=== PATIENT | male | born 1995 | race Caucasian/White ===

== ENCOUNTER 2017-05-15 14:47 | Emergency (ER) | payer OTHER ==
[2017-05-15 15:37] VITALS: BP 124/73
--- NOTE | 2017-05-15 16:06 | UC ---
Throat Pain/Nasal Navi HPI - HPI Summary HPI Summary: 21m presents with sore throat for 4 days. has been seen at ED twice first time told had strept without culture prescribed amoxicillin. developed rash on tongue and went back to ED and was told that has mono although mono spot neg. states that has had white coating to tongue for past 4 days after took amoxicillin. denies any chest pain or SOB. has occasionally dry cough. had fevers couple days ago and fatigue. denies any abdominal pain, n/v. states that bite his lip and now has lesions on lips that scrap off. no history of HSV. no burning pain to lip. He does not use chew tobacco. - History of Current Complaint Chief Complaint: UCRespiratory Stated Complaint: SORE THROAT,COUGH Time Seen by Provider: 05/15/17 15:04 - Allergies/Home Medications Allergies/Adverse Reactions: Allergies Allergy/AdvReac Type Severity Reaction Status Date / Time Amoxicillin Allergy Hives Verified 05/15/17 15:21 Penicillins Allergy Hives Verified 05/15/17 15:21 Home Medications: Home Medications Amphetamine-Dextroamphetamine [Adderall 15 mg] 1 tab DAILY 05/15/17 [History Confirmed 05/15/17] PMH/Surg Hx/FS Hx/Imm Hx Endocrine History: Other Other Endocrine History: no DM Cardiovascular History: Other Other Cardiovascular History: no HTN - Surgical History Surgical History: None - Family History Known Family History: Negative: Diabetes - Social History Alcohol Use: None Substance Use Type: None Smoking Status (MU): Never Smoked Tobacco - Immunization History Most Recent Influenza Vaccination: NOT YET 2017 Review of Systems Constitutional: Negative ENT: Sore Throat Respiratory: Negative Cardiovascular: Negative All Other Systems Reviewed And Are Negative: Yes Physical Exam Triage Information Reviewed: Yes Appearance: Well-Appearing Vital Signs: Initial Vital Signs Temp 98.8 F 05/15/17 15:22 Pulse 85 05/15/17 15:22 Resp 16 05/15/17 15:22 BP 124/73 05/15/17 15:22 Pulse Ox 99 05/15/17 15:22 Vital Signs Reviewed: Yes Eyes: Positive: Conjunctiva Clear ENT: Positive: Pharyngeal erythema, TMs normal, Tonsillar swelling, Other: - uvula midline, soft palate symmetric, white coating to tongue that does scrap off, flat lesions on wet shivani that scrap off nonvescular. Negative: Tonsillar exudate, Trismus, Muffled/hoarse voice Neck: Positive: Supple, Nontender, Other: - cervical lymphadenopathy Respiratory: Positive: Lungs clear, Normal breath sounds Cardiovascular: Positive: RRR Abdomen Description: Positive: Nontender, Soft Bowel Sounds: Positive: Present Musculoskeletal Exam: Normal Neurological Exam: Normal Psychological Exam: Normal Skin Exam: Normal Throat Pain/Nasal Course/Dx - Course Course Of Treatment: 21m presents with sore throat for 4 days. has been seen at ED twice first time told had strept without culture prescribed amoxicillin. developed rash on tongue and went back to ED and was told that has mono although mono spot neg. states that has had white coating to tongue for past 4 days after took amoxicillin. denies any chest pain or SOB. has occasionally dry cough. had fevers couple days ago and fatigue. denies any abdominal pain, n/v. states that bite his lip and now has lesions on lips that scrap off. no history of HSV. no burning pain to lip. on exam has maculopapular rash to tunk looks like mono rash. strept neg. pharynx erythema, tonsils+1, uvula midline, soft palate symmetric, tongue white coating scraps off will treat as candidasis but could be leukoplakia so needs to follow up with dentist. lips nonvescicular flat lesion that scrap off. will treat with magic mouth wash with nystatin for candidasis. will give steriod for rash and swelling tonsils. told to take bendaryl. patient understands and agrees with plan. - Differential Dx/Diagnosis Differential Diagnosis/HQI/PQRI: Pharyngitis, Tonsillitis, Other - candidasis Provider Diagnoses: pharnygitis, oral candidasis Discharge - Discharge Plan Condition: Good Disposition: HOME Prescriptions: Dexamethasone TAB* [Decadron TAB*] 4 mg PO DAILY #5 tab Magic M W2 Mario/Maal/Nyst/Lido* 5 ml SWISH SPIT QID #100 ml Magic M W2 Mario/Maal/Nyst/Lido* 5 ml SWISH SPIT QID #100 ml Patient Education Materials: Pharyngitis (ED), Oral Candidiasis (ED) Additional Instructions: Magic mouthwash 5ml swish and spit use 4 x a day Take steriod once a day for 5 daus Take bendaryl every 6 hours for rash Take Tylenol or ibuprofen for pain as needed Can gargle salt water Can use cough drops or products such as cloraseptic spray follow up with dentist Return to ED if develop fever does not respond to Tylenol or ibuprofen, inability to swallow, or difficulty breathing or any new or worsening symptoms
== END 2017-05-15 16:17 | disposition home or self-care (01) ==
LOC: UCCORT 14:47
DX: J02.9 Acute pharyngitis, unspecified (principal); B37.0 Candidal stomatitis; Z88.0 Allergy status to penicillin
CPT/HCPCS: 87651; 99202; G0463

== ENCOUNTER 2017-11-07 19:16 | Emergency (ER) | payer OTHER ==
--- NOTE | 2017-11-07 19:34 | UC ---
Complaint Male HPI - HPI Summary HPI Summary: Pt presents with penile and urinary complaint. He tells me that about 3 months ago he started feeling that his urethra was getting smaller. Feels as though the skin around his penis is becoming loose and his scrotum is hanging lower than usual. Also has some pain around the tip of his penis when it is rubbed against his clothing or to the touch. Still able to urinate without difficulty and without pain. He has been in a monogamous relationship with his girlfriend and says he has been tested for GC/Chlamydia in the past and was negative. About 2 weeks ago he saw a urologist back home near [facility] and was told he had urethritis - was put on Bactrim for 10 days and noticed no change in his symptoms. He is now back at school ([employer]) and is here with this continued issue. Denies fever, chills, recent illness, penile drainage, urine dribbling, loss of bladder function, or testicular pain. - History of Current Complaint Stated Complaint: PERSONAL Time Seen by Provider: 11/07/17 19:34 Hx Obtained From: Patient Onset/Duration: Gradual Onset Timing: Constant Severity Initially: Mild Severity Currently: Mild Pain Intensity: 3 Pain Scale Used: 0-10 Numeric - Allergies/Home Medications Allergies/Adverse Reactions: Allergies Allergy/AdvReac Type Severity Reaction Status Date / Time amoxicillin Allergy Hives Verified 11/07/17 19:29 Penicillins Allergy Hives Verified 11/07/17 19:29 Home Medications: Home Medications Sulfamethox/Trimethoprim DS* [Bactrim DS 800/160 TAB*] 1 tab PO BID 11/07/17 [ History Confirmed 11/07/17] PMH/Surg Hx/FS Hx/Imm Hx Previously Healthy: Yes - Surgical History Surgical History: None - Family History Known Family History: Negative: Diabetes - Social History Occupation: Student Lives: Alone Alcohol Use: None Substance Use Type: None Smoking Status (MU): Never Smoked Tobacco - Immunization History Most Recent Influenza Vaccination: NOT YET 2017 Review of Systems Constitutional: Negative Skin: Negative Respiratory: Negative Cardiovascular: Negative Gastrointestinal: Negative Genitourinary: Vaginal/Penile Pain Motor: Negative Neurovascular: Negative Neurological: Negative Psychological: Negative All Other Systems Reviewed And Are Negative: Yes Physical Exam Triage Information Reviewed: Yes Appearance: Well-Appearing, No Pain Distress, Well-Nourished Vital Signs Reviewed: Yes Neck: Positive: Supple, Nontender, No Lymphadenopathy Respiratory: Positive: Lungs clear, Normal breath sounds, No respiratory distress, No accessory muscle use Cardiovascular: Positive: RRR, No Murmur, Pulses Normal Abdomen Description: Positive: Nontender, No Organomegaly, Soft. Negative: Distended, Guarding Bowel Sounds: Positive: Present Male Genital Exam: Positive: Normal Genitalia, No Hernia. Negative: Epididymal Tenderness, Erythema, Inguinal Tenderness, Lesions, Scrotum Tenderness (R), Scrotum Tenderness (L), Urethral Discharge Neurological: Positive: Alert Psychological: Positive: Age Appropriate Behavior Skin: Negative: rashes, significant lesion(s) Complaint Male Course/Dx - Course Course Of Treatment: His UA was negative today. Will send for GC/Chlamydia and treat for Nongonococcal urethritis with doxycycline. Will also refer him to urology in [place] for further investigation. - Differential Dx/Diagnosis Provider Diagnoses: Penile pain Discharge - Sign-Out/Discharge Documenting (check all that apply): Discharge - Discharge Plan Condition: Stable Disposition: HOME Prescriptions: DOXYcycline CAP(*) [DOXYcycline 100MG CAP(*)] 100 mg PO BID #20 cap Patient Education Materials: Nonspecific Urethritis in Men (ED) Referrals: Non Staff,Doctor [Primary Care Provider] - Michael CAVAZOS,Po N. [Medical Doctor] - As Soon As Possible Additional Instructions: If you develop a fever, shortness of breath, chest pain, new or worsening symptoms - please call your PCP or go to the ED. - Billing Disposition and Condition Condition: STABLE Disposition: HOME
[2017-11-07 19:36] VITALS: BP 112/63
== END 2017-11-07 20:23 | disposition home or self-care (01) ==
LOC: UCCORT 19:16
DX: N48.89 Other specified disorders of penis (principal); Z88.1 Allergy status to other antibiotic agents; Z88.0 Allergy status to penicillin
CPT/HCPCS: 81003; 87491; 87591; 99212; G0463